=== PATIENT | female | born 1970 | race Caucasian/White ===

== ENCOUNTER 2019-05-29 16:12 | Emergency (ER) | payer OTHER ==
--- NOTE | 2019-05-29 16:30 | PDOC ---
History of Present Illness - General Chief Complaint: Shortness of Breath Stated Complaint: SOB Time Seen by Provider: 05/29/19 16:28 History Source: Patient Exam Limitations: No Limitations - History of Present Illness Initial Comments: Pt is a 48 yo F, with PMH of CLL (on alecensa), L-lobe lung CA (partial lobectomy 2013), and hypothyroidism, who is presenting from home for complaints of SOB and night sweats. Pt states she had chest pressure 4-5 days ago, which resolved. Pt then states over the past 4 days, she has been waking up at night with SOB and sweating. Pt takes intermittent AC "shots" before she travels to [place]. Pt denies any recent fevers, headache, vision changes, syncope, palpitations, nausea/vomiting, abdominal pain, urinary symptoms, diarrhea/ constipation, or leg swelling. Allergies: NKDA Social: Pt denies any cigarette, alcohol, or drug use. Pt denies any recent travel or sick contacts. Surgical: as above Family: no relevant history. 05/29/19 18:33 Past History - Travel Traveled outside of the country in the last 30 days: No Close contact w/someone who was outside of country & ill: No - Past Medical History Allergies/Adverse Reactions: Allergies Allergy/AdvReac Type Severity Reaction Status Date / Time hyoscyamine [Hyoscyamine] Allergy Verified 05/29/19 16:47 Home Medications: Ambulatory Orders Alectinib HCl [Alecensa] 150 mg PO ASDIR 05/29/19 Levothyroxine [Synthroid -] 75 mcg PO DAILY 05/29/19 Lung CA: Yes (LEFT LOBECTOMY JUN 2014) - Suicide/Smoking/Psychosocial Hx Smoking History: Never smoked Have you smoked in the past 12 months: No Hx Alcohol Use: No Drug/Substance Use Hx: No Substance Use Type: None Review of Systems - Review of Systems Able to Perform ROS?: Yes Is the patient limited [place] proficient: No Constitutional: Yes: See HPI, Night Sweats, Weight Stable. No: Chills, Diaphoresis, Fever, Loss of Appetite, Malaise, Weakness HEENTM: No: Blurred Vision, Recent change in vision, Double Vision, Nose Congestion, Throat Pain, Throat Swelling Respiratory: Yes: Shortness of Breath, SOB at Rest. No: Cough, Orthopnea, Wheezing, Hemoptysis Cardiac (ROS): Yes: See HPI, Chest Pain. No: Edema, Irregular Heart Rate, Lightheadedness, Palpitations, Syncope, Chest Tightness ABD/GI: No: Constipated, Diarrhea, Nausea, Poor Appetite, Poor Fluid Intake, Rectal Bleeding, Vomiting, Abdominal cramping : No: Burning, Dysuria, Frequency, Pain, Urgency Musculoskeletal: No: Back Pain, Joint Pain, Muscle Pain, Muscle Weakness Integumentary: No: Rash Neurological: No: Numbness, Paresthesia, Weakness, Unsteady Gait, Dizziness Psychiatric: No: Sleep Pattern Change, Change in Appetite Endocrine: No: Increased Urine, Change in Weight Hematologic/Lymphatic: No: Anemia, Blood Clots, Easy Bleeding, Easy Bruising All Other Systems: Reviewed and Negative *Physical Exam - Physical Exam Comments: Vitals stable, pt afebrile. Pt in NAD, ambulating freely in the ED without difficulty. Lying comfortably in the bed. Appears anxious. Normal body habitus. Pt alert and oriented [employer]3. [employer] generally intact, muscular strength and sensation intact. No midline spinal tenderness, step-offs, or crepitus. Head normocephalic, atraumatic. Eyes PERRLA, EOMI. Oropharynx without erythema or exudates, no LAD b/l. No nasal congestion, hearing intact. Clear heart sounds, S1/S2, no JVD, b/l pedal edema, or heart murmur. Clear lung sounds, no respiratory distress, wheezes, crackles, or accessory muscle use. No abdominal or CVA tenderness to palpation, no rebound, no guarding. Abdomen soft, non-distended, and with normoactive bowel sounds. Skin without jaundice or rash. 05/29/19 18:38 ED Treatment Course - LABORATORY CBC & Chemistry Diagram: 05/29/19 17:32 05/29/19 17:32 Medical Decision Making - Medical Decision Making Pt was seen at bedside, also will be seen by attending Dr. Gregory. Pt presenting with complaints of SOB during the night, with night sweats. Pt admits to skipping doses of her Alecensa lately. Will evaluate for cardiac/CHF vs thyroid dysfunction vs electrolyte imbalance vs PE. Provided 500 mL IVNS for hydration before CT scan. Will continue to reassess pt and monitor for symptomatic improvement. ECG: Sinus bradycardia (HR 56, OR 170, QRS 90, QTc 387). No TWIs or significant ST segment changes. No prior ECG for comparison. 05/29/19 18:39 CBC: WBC 26 -- CLL -- pending differential CMP WNL Ordered CTA -- radiology called for imaging. Pending troponin, BNP, TSH Pt endorsed to night team. 05/29/19 18:44 *DC/Admit/Observation/Transfer Diagnosis at time of Disposition: CLL (chronic lymphocytic leukemia), Shortness of breath Lung cancer Qualifiers: Laterality: left Lung location: unspecified part of lung Qualified Code(s): C34.92 - Malignant neoplasm of unspecified part of left bronchus or lung - Discharge Dispostion Condition at time of disposition: Stable - Referrals - Patient Instructions - Post Discharge Activity
[2019-05-29 16:46] VITALS: BMI 24.3
[2019-05-29] MEDS ORDERED: SODIUM CHLORIDE 500 ML IV STA (17:39)
--- NOTE | 2019-05-29 17:55 | PDOC ---
Attending Attestation - Resident Resident Name: Yolanda Bernal - ED Attending Attestation I have performed the following: I have examined & evaluated the patient, The case was reviewed & discussed with the resident, I agree w/resident's findings & plan, Exceptions are as noted - HPI HPI: 05/29/19 17:55 Ms. Grullon is a 48-year-old female with a PMH of CLL (Treated) followed by dx of primary left lung CA now s/p minimally invasive lobectomy. Pt states she had chest pressure 4-5 days ago, which has resolved resolved. Pt has noticed that over the past 4 days, she has been waking up at night with SOB and sweating. She notes that when she takes a deep breath, she has a restricted feeling No fevers or chills No exertional chest pain, shortness of breath, fatigue No recent travel Of note: Pt takes intermittent AC "shots" before she travels to [place]. 05/31/19 10:31 - Physicial Exam PE: 05/29/19 18:03 GENERAL: The patient is in no acute distress. ENT: Ears normal, nares patent, oropharynx clear without exudates. Moist mucous membranes. NECK: Normal range of motion, supple LUNGS: Coarse breath sounds left lung HEART:Regular rate and rhythm, normal S1 and S2 without murmur ABDOMEN: Soft, nontender, normoactive bowel sounds. EXTREMITIES: Normal range of motion, no edema. NEUROLOGICAL: Cranial nerves II through XII grossly intact. Normal speech. No focal neurological deficits. SKIN: Warm, Dry, normal turgor, no rashes or lesions noted. - Medical Decision Making 05/29/19 18:05 48 yo F extensive cancer history presenting with a complaint of chest pain and shortness of breath DD Musculoskeletal pain, pleural effusion, pneumonia, pleurisy, PE Will do: Labs EKG CTA EKG:LSR rate of 56 bpm, axis nml, intervals nml, no st elevation or depression, t waves upright Labs pending CTA pending Pt signed out to Dr Cortez
[2019-05-29 18:09] LABS: HEMATOCRIT 35.1 % (32.4-45.2); HEMOGLOBIN 12.1 GM/dl (10.7-15.3); MCH 33.4 pg (25.7-33.7); MCHC 34.5 g/dl (32.0-36.0); MEAN CELL VOLUME 96.7 fl (80-96); MEAN PLT VOLUME 8.7 fl (7.5-11.1); PLATELET COUNT 320 K/MM3 (134-434); RBC 3.63 M/mm3 (3.60-5.2); RDW 13.7 % (11.6-15.6); WHITE BLOOD COUNT 26.8 K/mm3 (4.0-10.8)
[2019-05-29 18:14] LABS: BILIRUBIN,TOTAL 0.7 mg/dl (0.2-1); CALCIUM 9.1 mg/dl (8.5-10); POTASSIUM 4.2 mmol/L (3.5-5.1); TOT PROT 6.5 g/dl (6.4-8.2)
[2019-05-29 18:19] LABS: INR 1.05 (0.82-1.09); PROTHROMBIN TIME (PATIENT) 11.7 SEC (10.2-13.0)
[2019-05-29 19:40] LABS: PLATELET ESTIMATE ADEQUATE; SMUDGE CELLS FEW
[2019-05-29 20:04] LABS: N-TERMINAL BNP 63.3 pg/ml (5-125)
[2019-05-29 20:34] VITALS: BP 111/65; PULSE 61; TEMP 98.4
--- NOTE | 2019-05-29 21:36 | PDOC ---
*Physical Exam - Vital Signs Last Vital Signs Temp Pulse Resp BP Pulse Ox 98.4 F 61 20 111/65 98 05/29/19 20:32 05/29/19 20:32 05/29/19 16:15 05/29/19 20:32 05/29/19 20:32 ED Treatment Course - LABORATORY CBC & Chemistry Diagram: 05/29/19 17:32 05/29/19 17:32 - ADDITIONAL ORDERS Additional order review: Laboratory Results 05/29/19 05/29/19 05/29/19 17:32 17:32 17:32 PT with INR 11.7 INR 1.05 PTT (Actin FS) Sodium 139 Potassium 4.2 Chloride 106 Carbon Dioxide 27 Anion Gap 6 L BUN 15.0 Creatinine 1.0 Est GFR (CKD-EPI)AfAm 77.69 Est GFR (CKD-EPI)NonAf 67.04 Random Glucose 91 Calcium 9.1 Total Bilirubin 0.7 AST 16 ALT 13 Alkaline Phosphatase 52 Creatine Kinase 103 Troponin I 0.00 B-Natriuretic Peptide 63.3 Total Protein 6.5 Albumin 4.0 TSH 2.88 05/29/19 17:32 PT with INR INR PTT (Actin FS) 29.1 Sodium Potassium Chloride Carbon Dioxide Anion Gap BUN Creatinine Est GFR (CKD-EPI)AfAm Est GFR (CKD-EPI)NonAf Random Glucose Calcium Total Bilirubin AST ALT Alkaline Phosphatase Creatine Kinase Troponin I B-Natriuretic Peptide Total Protein Albumin TSH 05/29/19 17:32 RBC 3.63 MCV 96.7 H MCHC 34.5 RDW 13.7 MPV 8.7 Neutrophils % No Result Required. Lymphocytes % No Result Required. - Medications Given in the ED: ED Medications Discontinued Medications Generic Name Dose Route Start Last Admin Trade Name Freq PRN Reason Stop Dose Admin Sodium Chloride 500 mls @ 500 mls/hr 05/29/19 17:39 05/29/19 17:47 Normal Saline - IV 05/29/19 18:38 500 mls/hr ASDIR STA Administration Progress Note - Progress Note Progress Note: Care of this patient received from Dr Gregory. CTA of the chest performed ; because of leakage of IV contrast at connection, study was suboptimal. Interpretation by Dr. Adam of the radiology staff described no central venous emboli identified but peripheral vasculature could not be fully evaluated secondary to decreased contrast. Results discussed with the patient. Because of her previous difficulties with side effects of the IV contrast , she did not want a second study performed (even if there was a time delay between the studies). It was explained to the patient that because pulmonary emboli could not be fully ruled out, she would need to be admitted for nuclear V/Q scan, likely to be performed tomorrow with presumptive anticoagulation therapy started prior to the study. Patient adamantly refused admission although the risks for not treating pulmonary emboli, including respiratory failure and , explained to her. The patient signed out AGAINST MEDICAL ADVICE, stating that she would follow-up with her doctor in [place] tomorrow *DC/Admit/Observation/Transfer Diagnosis at time of Disposition: CLL (chronic lymphocytic leukemia), Shortness of breath Lung cancer Qualifiers: Laterality: left Lung location: unspecified part of lung Qualified Code(s): C34.92 - Malignant neoplasm of unspecified part of left bronchus or lung - Discharge Dispostion Disposition: AGAINST MEDICAL ADVICE Condition at time of disposition: Stable - Referrals - Patient Instructions Additional Instructions: followup with your doctor tomorrow as discussed return to ER if you have worsening shortness of breath or pain - Post Discharge Activity
--- NOTE | 2019-05-30 12:28 | EKG ---
Test Reason : Blood Pressure : / mmHG Vent. Rate : 056 BPM Atrial Rate : 056 BPM P-R Int : 170 ms QRS Dur : 090 ms QT Int : 402 ms P-R-T Axes : 059 058 054 degrees QTc Int : 387 ms SINUS BRADYCARDIA OTHERWISE NORMAL ECG NO PREVIOUS ECGS AVAILABLE Confirmed by LANIE NATH, CAROL ([id number]) on 05/30/2019 12:27:59 PM Referred By: MD SANCHES Confirmed By:CAROL DELA CRUZ MD
== END 2019-05-29 21:38 | disposition left against medical advice (07) ==
LOC: FER 16:12
PROC: 3E0337Z Introduction of Electrolytic and Water Balance Substance into Peripheral Vein, Percutaneous Approach (ICD-10-PCS; principal; 2019-05-29)
DX: C34.92 Malignant neoplasm of unspecified part of left bronchus or lung (principal); C91.10 Chronic lymphocytic leukemia of B-cell type not having achieved remission; R06.02 Shortness of breath
CPT/HCPCS: 36415; 71275-TC; 80053; 82550; 83880; 84443; 84484; 85025; 85610; 85730; 93005; 96360; 99283-25